=== PATIENT | male | born 1955 | race Caucasian/White ===

== ENCOUNTER 2022-03-06 06:54 | Inpatient (IN) ==
[2022-03-06 09:46] LABS: Calcium 9.3 mg/dL (8.6-10.3); Potassium 4.1 mmol/L (3.5-5.0)
[2022-03-07 05:57] LABS: Calcium 9.2 mg/dL (8.6-10.3); Potassium 3.9 mmol/L (3.5-5.0); eGFR CKD-EPI 75.2 (>60)
[2022-03-08 09:52] LABS: Calcium 9.8 mg/dL (8.6-10.3); Potassium 4.4 mmol/L (3.5-5.0); eGFR CKD-EPI 72.8 (>60)
[2022-03-08] MEDS ORDERED: Midazolam 5 mg/5 ml VIAL 1 mg/ml 5 ml VIAL (5 mg) ONE (10:15)
[2022-03-08] MEDS ORDERED: fentaNYL 100 mcg/2 ml 50 MCG/ML VIAL ONE (10:15)
[2022-03-08 15:20] VITALS: BP 126/80
== END 2022-03-08 16:40 | disposition home or self-care (01) | DRG 310 ==
LOC: SSU 08:10 → MEDTELE 08:27
PROVIDERS: ADMIT Specialist; ATTEND Specialist
PROC: CARDVER (ICD-10-PCS; 2022-03-08 11:05)